=== PATIENT | female | born 1965 | race Caucasian/White ===

== ENCOUNTER 2020-01-16 11:07 | Emergency (ER) | payer OTHER ==
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
--- OUTSIDE RECORDS SUMMARY | 2020-01-16 11:10 | XMS REPORT | Continuity of Care Document ---
:1965 Author Organization [facility] t Address [address] [place] [address] Care Team Providers Name Role Phone MD Jonathan WHATLEY Primary Care Physician Eder SEGOVIA Attending Clinician Advance Directives Directive Decision Effective Date Termination Date Comments Sour ce Yes N/A [facility] Problems Condition Condition Condition Status Onset Resolution Last Treating Co mments Source Name Details Category Date Date Treatment Clinician Date Fall Problem [facility] Laceration Problem DAPHNE TU of S [facility] per[facility] Elevated Problem CHRISTU liver S [facility] function [facility] tests [facility] Moderate Problem [facility]RISTU malnutriti S [facility] Severe Problem CHRISTU bipolar II S [facility] disorder, [facility] depressed, Hospit a with l anxious distress Alcohol Problem [facility]STU dependence [facility] Alcohol Problem [facility]RISTU withdrawal S [facility] syndrome [facility] Noncomplia Problem DAPHNE TU nce [facility] Complicate Problem DAPHNE TU d [facility] bereavemen [facility] Generalize Problem DAPHNE TU d anxiety S [facility] disorder [facility] Asymptomat Problem DAPHNE TU ic S [facility] bacteriuri [facility] a [facility] Hypertensi Problem DAPHNE TU on [facility] Leukopenia Problem DAPHNE TU [facility] Suicidal Problem [facility]U ideation [facility] Alcohol Problem CHRISTU abuse S [facility] Depression Problem DAPHNE TU S [facility] Alcoholic Problem NIR U intoxicati S . [facility] Recurrent Problem NIR U vomiting S [facility] Allergies, Adverse Reactions, Alerts Allergy Allergy Status Severity Reaction(s) Onset Inactive Treating Comm ents Source Name Type Date Date Clinician NO Allergy Active 2017-05 CHRISTU KNOWN to 06-07 S [facility] DRUG substanc 00:00: [facility] ALLERGY e 00 [facility] Social History Social Habit Start Date Stop Date Quantity Comments Source Sex Assigned At 1965 [address] 00:[facility]00 00:00[facility]00 [facility] Smoking Status Start Date Stop Date Source Smokes tobacco daily 2019-03-31 11:41:00 CHRISTU S [facility] (finding) Hospital Medications Ordered Filled Start Stop Current Ordering Indication Dosage Frequency Signature Comments Components Source Medication Medication Date Date Medication? Clinician (SIG) Name Name Hydroxyzine 2018-05 No 50mg NIR U Pamoate 1-[address] 14:23: [facility] Promethazin 2018-05 No 25mg NIR U e Hcl 1-[address] 14:23: [facility] Aripiprazol 2017-05 No 10mg NIR U e 2-[address] 11:31: [facility] Buspirone 2017-05 No 15mg CHRISTU Hcl 2-[address] 11:31: [facility] Fluoxetine 2017-05 No 20mg CHRISTU Hcl 2-[address] 11:31: [facility] Hydroxyzine 2017-05 No 25mg NIR U Pamoate 2-[address] 11:31: [facility] Mirtazapine 2017-05 No 15mg NIR U 2-[address] 11:31: [facility] Nicotine 2017-05 No 1 CHRISTU 2-[address] 11:31: [facility] Oxcarbazepi 2017-05 No 300mg DAPHNE TU ne 2-[address] 11:31: [facility] Trazodone 2018-1 No 150mg CHRISTU Hcl 2-[address] 11:31: [facility] 00 [facility] Clonidine No .1mg CHRISTU S [facility] Vital Signs Vital Name Observation Time Observation Value Comments Source Body Temperature 2019-03-31 14:32:00 98.0 [degF[facility] Heart Rate 2019-03-31 14:32:00 76 /min [facility] Respiratory rate 2019-03-31 14:32:00 20 /min CH[facility] BP Systolic 2019-03-31 14:32:00 134 mm[Hg] [facility] BP Diastolic 2019-03-31 14:32:00 74 mm[Hg] [facility] Heart Rate 2019-03-31 11:54:00 98 /min [facility] BP Systolic 2019-03-31 11:54:00 126 mm[Hg] [facility] BP Diastolic 2019-03-31 11:54:00 85 mm[Hg] [facility] Respiratory rate 2019-03-31 10:58:00 20 /min [facility] Weight 2019-03-31 10:58:00 140 [lb_av] [facility] BMI (Body Mass Index) 2019-03-31 10:58:00 27.3 kg/m2 [facility] Procedures Procedure Date / Time Performed Performing Clinician [facility] e ECG 2019-03-31 00:00:00 [facility] (electrocardiogram) [facility] Acute abdomen x-ray 2019-03-31 00:00:00 [facility] series with x-ray of Hospital chest, single view Plan of Care Planned Activity Planned Date Details Comments Source Future Scheduled Test Bacterial urine [facility] culture [code = [facility] 630-4] Goal Patient referral [facility] [code = 1923153 ] [facility] Instructions Anxiety, Adult (DC) [facility] Instructions Nausea and Vomiting, [facility] Adult (DC) Hospital Encounters Start End Encounter Admission Attending Care Care Encounter Source Date/Time Date/Time Type Type Clinicians Facility Department ID 2020-01-08 2020-01-08 Emergency Eder, RUST [id number] 20:39:00 21:34:00 [place] Snow [id number] Nataly [id number] [place] [id number] 2019-03-31 2019-03-31 Departed VAIBHAV REBOLLAR [id number] CHRISTU 10:56:00 14:30:00 Emergency [place] [address] [address] [facility] Results Test Description Test Time Test Comments Results Result Comments Source Urine color determination 2019-03-31 13:22:00 Test Item Value Reference Range Interpretation Comme nts Urine Color (test code = 5778-6) Yellow [facility] appearance [id number] 13:22:00 Test Item Value Reference Range Interpretation Comments Urine Appearance (test code = 5767-9) Cloudy [facility] pH measurement by test [id number] 13:22:00 Test Item Value Reference Range Interpretation Comments Urine pH (test code = 5803-2) 6.0 [facility]pH[facility] Test [id number] 13:22:00 Test Item Value Reference Range Interpretation Comments Urine Specific Murphy (test code = 1.025 5811-5) [facility] by Refractometry 2019-03-31 13:22:00 Test Item Value Reference Range Interpretation Comments Urine Specific Murphy (Refractom) 1.020 (test code = 5810-7) [facility] protein assay by test strip, [id number] 13:22:00 Test Item Value Reference Range Interpretation Comments Urine Protein (test code = Negative mg/dL 54767-5) [facility] glucose measurement by test strip (mass/volume)2019-03-31 13:22:00 Test Item Value Reference Range Interpretation Comments Urine Glucose (UA) (test code Negative mg/dL = 5792-7) [facility] ketones detection by test [id number] 13:22:00 Test Item Value Reference Range Interpretation Comments Urine Ketones (test code = Negative mg/dL 2514-8) [facility] erythrocytes count by test strip (number/volume)2019-03-31 13:22:00 Test Item Value Reference Range Interpretation Comments Urine Occult Blood (test code = Negative 24314-0) [facility] nitrite detection by automated test strip 2019-03-31 13:22:00 Test Item Value Reference Range Interpretation Comments Urine Nitrite (test code = 85515-2) Negative [facility] total bilirubin detection by test strip 2019-03-31 13:22:00 Test Item Value Reference Range Interpretation Comments Urine Bilirubin (test code = 5770-3) Negative [facility] urobilinogen measurement by automated test strip (mass/volume)2019-03-31 13:22:00 Test Item Value Reference Range Interpretation Comments Urine Urobilinogen (test code = Normal mg/dL 94699-8) [facility] leukocyte esterase detection by dipstick 2019-03-31 13:22:00 Test Item Value Reference Range Interpretation Comments Urine Leukocyte Esterase Negative {Barrera}/uL (test code = 5799-2) [facility] microscopic examination for dysmorphic red blood [id number] 13:22:00 Test Item Value Reference Range Interpretation Comments Urine RBC (test code = 76522-3) None /[HPF] [facility] count in urine sediment by microscopy high power field (number/[id number] 13:22:00 Test Item Value Reference Range Interpretation Comments Urine WBC (test code = 5821-4) 5-10 /[HPF] [facility] sediment squamous epithelial cell count by microscopy (number/high power field)2019-03-31 13:22:00 Test Item Value Reference Range Interpretation Comments Urine Squamous Epithelial 2+ Moderate /[LPF] Cells (test code = 82344-8) [facility] sediment by light [id number] 13:22:00 Test Item Value Reference Range Interpretation Comments Urine Bacteria (test code 2+ Moderate /[HPF] = 68140-8) [facility] [id number] 13:22:00 Test Item Value Reference Range Interpretation Comments Urine Culture Indicated Yes, Criteria Met (test code = 8264-4) [facility]3][facility] leukocyte count (number/volume) 2019-03-31 11:15:00 Test Item Value Reference Range Interpretation Comments White Blood Count (test code = 5.1 10*3/uL 6690-2) [facility] automated count (number/volume) 2019-03-31 11:15:00 Test Item Value Reference Range Interpretation Comments Red Blood Count (test code = 4.58 10*6/uL 789-8) [facility] measurement (mass/volume) 2019-03-31 11:15:00 Test Item Value Reference Range Interpretation Comments Hemoglobin (test code = 718-7) 13.9 g/dL [facility] hematocrit (volume fraction) 2019-03-31 11:15:00 Test Item Value Reference Range Interpretation Comments Hematocrit (test code = 4544-3) 41.9 % [facility]3][facility] erythrocyte mean corpuscular volume (MCV) [id number] 11:15:00 Test Item Value Reference Range Interpretation Comments Mean Corpuscular Volume (test code = 91.5 fL 787-2) [facility]3][facility] eryth[facility] mean corpuscular hemoglobin (mass per erythrocyte)2019-03-31 11:15:00 Test Item Value Reference Range Interpretation Comments Mean Corpuscular Hemoglobin (test 30.3 pg code = 785-6) [facility]3][facility] eryth[facility] mean corpuscular hemoglobin concentration (MCHC) measurement ([id number] 11:15:00 Test Item Value Reference Range Interpretation Comments Mean Corpuscular Hemoglobin Concent 33.2 % (test code = 786-4) [facility]3][facility] eryth[facility] distribution width ratio 2019-03-31 11:15:00 Test Item Value Reference Range Interpretation Comments Red Cell Distribution Width (test code 12.9 % = 788-0) [facility] platelet count (count/volume) 2019-03-31 11:15:00 Test Item Value Reference Range Interpretation Comments Platelet Count (test code = 237 10*3/uL 777-3) [facility] platelet mean volume measurement 2019-03-31 11:15:00 Test Item Value Reference Range Interpretation Comments Mean Platelet Volume (test code = 10.5 fL 68115-3) [facility] count as percentage of total [id number] 11:15:00 Test Item Value Reference Range Interpretation Comments Neutrophils (%) (Auto) (test code = 71.5 % 770-8) [facility] immature granulocyte count as percentage of total [id number] 11:15:00 Test Item Value Reference Range Interpretation Comments Immature Granulocyte % (Auto) (test 0.40 % code = 37730-3) [facility] lymphocyte count as percentage of total [id number] 11:15:00 Test Item Value Reference Range Interpretation Comments Lymphocytes (%) (Auto) (test code = 22.0 % 736-9) [facility] monocyte count as percentage of total bxqycdnkvr4470-04-28 11:15:00 Test Item Value Reference Range Interpretation Comments Monocytes (%) (Auto) (test code = 5.3 % 5905-5) [facility] eosinophil count as percentage of total bgyltcizpa8346-80-15 11:15:00 Test Item Value Reference Range Interpretation Comments Eosinophils (%) (Auto) (test code = 0.4 % 713-8) [facility] basophil count as percentage of total [id number] 11:15:00 Test Item Value Reference Range Interpretation Comments Basophils (%) (Auto) (test code = 0.4 % 706-2) [facility] nucleated erythrocyte count as percentage of total [id number] 11:15:00 Test Item Value Reference Range Interpretation Comments Nucleated Red Blood Cells % (test code 0.0 % = 36180-2) [facility] neutrophil count (number/volume) 2019-03-31 11:15:00 Test Item Value Reference Range Interpretation Comments Neutrophils # (Auto) (test code = 3.7 10*3/uL 751-8) [facility] immature granulocyte count as percentage of total nzgptnaqek2511-64-57 11:15:00 Test Item Value Reference Range Interpretation Comments Immature Granulocyte # (Auto) (test 0.0200 code = 97930-0) [facility] lymphocyte count (number/volume) 2019-03-31 11:15:00 Test Item Value Reference Range Interpretation Comments Lymphocytes # (Auto) (test code = 1.1 10*3/uL 731-0) [facility] monocytes automated count (number/volume) 2019-03-31 11:15:00 Test Item Value Reference Range Interpretation Comments Monocytes # (Auto) (test code = 0.3 10*3/uL 742-7) [facility] eosinophil [id number] 11:15:00 Test Item Value Reference Range Interpretation Comments Eosinophils # (Auto) (test code = 0.0 10*3/uL 711-2) [facility] basophil count (number/volume) 2019-03-31 11:15:00 Test Item Value Reference Range Interpretation Comments Basophils # (Auto) (test code = 0.0 10*3/uL 704-7) [facility] leukocyte count corrected for nucleated [id number] 11:15:00 Test Item Value Reference Range Interpretation Comments Nucleated Red Blood Cells # (test code 0.000 = 74405-4) [facility] (moles/volume)2019-03-31 11:15:00 Test Item Value Reference Range Interpretation Comments Sodium Level (test code = 00553-4) 142 mmol/L [facility] or plasma potassium measurement (moles/volume)2019-03-31 11:15:00 Test Item Value Reference Range Interpretation Comments Potassium Level (test code = 3.3 mmol/L 2823-3) [facility] or plasma chloride measurement (moles/volume) 2019-03-31 11:15:00 Test Item Value Reference Range Interpretation Comments Chloride Level (test code = 106 mmol/L 2075-0) [facility] or plasma carbon dioxide measurement (moles/volume)2019-03-31 11:15:00 Test Item Value Reference Range Interpretation Comments Carbon Dioxide Level (test code = 30 mmol/L 2027-) [facility] plasma anion [id number] 11:15:00 Test Item Value Reference Range Interpretation Comments Anion Gap (test code = 57884-0) 6.0 mmol/L [facility] or plasma urea nitrogen measurement (mass/volume)2019-03-31 11:15:00 Test Item Value Reference Range Interpretation Comments Blood Urea Nitrogen (test code = 18.0 mg/dL 3094-0) [facility] or plasma creatinine measurement (mass/volume)2019-03-31 11:15:00 Test Item Value Reference Range Interpretation Comments Creatinine (test code = 2160-0) 0.871 mg/dL [facility] [id number] 11:15:00 Test Item Value Reference Range Interpretation Comments Estimat Glomerular Filtration Rate > 60 (test code = 18301-2) [facility] or plasma glucose measurement (mass/volume) 2019-03-31 11:15:00 Test Item Value Reference Range Interpretation Comments Glucose Level (test code = 2345-7) 117 mg/dL [facility] or plasma calcium measurement (mass/volume) 2019-03-31 11:15:00 Test Item Value Reference Range Interpretation Comments Calcium Level (test code = 17279-2) 9.8 mg/dL [facility] or plasma total bilirubin measurement (mass/volume)2019-03-31 11:15:00 Test Item Value Reference Range Interpretation Comments Total Bilirubin (test code = 0.4 mg/dL 1974-2) [facility] or plasma aspartate aminotransferase measurement (enzymatic activity/volume)2019-03-31 11:15:00 Test Item Value Reference Range Interpretation Comments Aspartate Amino Transf (AST/SGOT) 16 U/L (test code = 1920-8) [facility] or plasma alanine aminotransferase measurement (enzymatic activity/volume)2019-03-31 11:15:00 Test Item Value Reference Range Interpretation Comments Alanine Aminotransferase (ALT/SGPT) 18 U/L (test code = 1742-6) [facility] or plasma protein measurement (mass/volume) 2019-03-31 11:15:00 Test Item Value Reference Range Interpretation Comments Total Protein (test code = 2885-2) 7.7 g/dL [facility] or plasma albumin measurement (mass/volume) 2019-03-31 11:15:00 Test Item Value Reference Range Interpretation Comments Albumin (test code = 1751-7) 4.4 g/dL [facility] or plasma alkaline phosphatase measurement (enzymatic activity/volume)2019-03-31 11:15:00 Test Item Value Reference Range Interpretation Comments Alkaline Phosphatase (test code = 101 U/L 6768-6) [facility] or plasma lipase measurement (enzymatic activity/volume)2019-03-31 11:15:00 Test Item Value Reference Range Interpretation Comments Lipase (test code = 3040-3) 123 U/L [facility] ser/kfcc1228-15-96 11:15:00 Test Item Value Reference Range Interpretation Comments Lactic Acid Level (test code = 1.4 mmol/L 2524-7) [facility] or plasma thyrotropin measurement by detection limit <=0.005 miu/l (units/[id number] 11:15:00 Test Item Value Reference Range Interpretation Comments Thyroid Stimulating Hormone 0.444 u[iU]/mL (TSH) (test code = 21701-9) [facility]
--- NOTE | 2020-01-16 12:00 | EDPHYS ---
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 11:56 The patient presents to the emergency department requesting refill(s) for: Lisy, rn Lasix, Prozac. The patient chronically suffers from bipolar and anxiety. The patient has experienced similar episodes in the past. Reports displaced from [place] and unable to contact her doctor, states recently had meds refilled at [facility] for thorazine/klonopin, but only given 5 days. No acute complaints. . 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 - Social history:: Smoking status: Patient reports the use of cigarette tobacco products, smokes one-half pack cigarettes per day. - Family history:: not pertinent. - Hospitalizations: : No recent hospitalization is reported. ROS: 11:56 Constitutional: Negative for fever, chills, and weight loss, Eyes: Negative for injury, rn pain, redness, and discharge, Neck: Negative for injury, pain, and swelling, Cardiovascular: Negative for chest pain, palpitations, and edema, Respiratory: Negative for shortness of breath, cough, wheezing, and pleuritic chest pain, Abdomen/GI: Negative for abdominal pain, nausea, vomiting, diarrhea, and constipation, MS/Extremity: Negative for injury and deformity, Skin: Negative for injury, rash, and discoloration, Neuro: Negative for headache, weakness, numbness, tingling, and seizure, Psych: Negative for suicide ideation, homicidal ideation, and hallucinations. Exam: 11:56 Constitutional: This is a well developed, well nourished patient who is awake, alert, rn and in no acute distress. Respiratory: No increased work of breathing, no retractions or nasal flaring. Neuro: Awake and alert, GCS 15, Normal gait. Vital Signs: 11:41 BP 131 / 97; Pulse 102; Resp 16 S; Temp 97.3(TE); Pulse Ox 100% on R/A; Weight 63.5 kg ca1 (R); Height 5 ft. 0 in. (152.40 cm) (R); Pain 0/10; 11:41 Body Mass Index 27.34 (63.50 kg, 152.40 cm) ca1 MDM: 11:50 Patient medically screened. rn 11:56 Data reviewed: vital signs, nurses notes, and as a result, I will discharge patient. rn Counseling: I had a detailed discussion with the patient and/or guardian regarding: the historical points, exam findings, and any diagnostic results supporting the discharge/admit diagnosis, the need for outpatient follow up, to return to the emergency department if symptoms worsen or persist or if there are any questions or concerns that arise at home. Special discussion: I discussed with the patient/guardian in detail that at this point there is no indication for admission to the hospital. It is understood, however, that if the symptoms persist or worsen the patient needs to return immediately for re-evaluation. Based on the history and exam findings, there is no indication for further emergent testing or inpatient evaluation. I discussed with the patient/guardian the need to see the psychiatrist for further evaluation of the symptoms. Administered Medications: No medications were administered Disposition: 01/16/20 11:59 Discharged to Home. Impression: Anxiety disorder, unspecified, Encounter for medicaiton refill. - Condition is Stable. - Discharge Instructions: Generalized Anxiety Disorder. - Prescriptions for chlorpromazine 100 mg Oral tablet - take 1 tablet by ORAL route 2 times per day; 28 tablet. trazodone 50 mg Oral tablet - take 1 tablet by ORAL route once daily; 14 tablet. Abilify 15 mg Oral Tablet - take 1 tablet by ORAL route once daily; 14 tablet. Prozac 20 mg Oral Capsule - take 1 capsule by ORAL route once daily; 14 capsule. Lasix 40 mg Oral Tablet - take 1 tablet by ORAL route once daily for 14 days; 14 tablet. - Medication Reconciliation Form, Thank You Letter, Antibiotic Education, Prescription Opioid Use form. - Follow up: Private Physician; When: As needed; Reason: Recheck today's complaints, Re-evaluation by your physician. - Problem is chronic. - Symptoms are unchanged. Signatures: Cathi Rosen, RN RN iw Emigdio Puri MD MD rn Acob, Pricilla, RN RN ca1 Michelle Julien RN RN jr10 Corrections: (The following items were deleted from the chart) 12:10 11:59 01/16/2020 11:59 Discharged to Home. Impression: Anxiety disorder, unspecified; jr10 Encounter for medicaiton refill. Condition is Stable. Forms are Medication Reconciliation Form, Thank You Letter, Antibiotic Education, Prescription Opioid Use. Follow up: Private Physician; When: As needed; Reason: Recheck today's complaints, Re-evaluation by your physician. Problem is chronic. Symptoms are unchanged. rn 12:24 12:10 01/16/2020 11:59 Discharged to Home. Impression: Anxiety disorder, unspecified; iw Encounter for medicaiton refill. Condition is Stable. Discharge Instructions: Generalized Anxiety Disorder. Prescriptions for chlorpromazine 100 mg Oral tablet - take 1 tablet by ORAL route 2 times per day; 28 tablet, trazodone 50 mg Oral tablet - take 1 tablet by ORAL route once daily; 14 tablet, Abilify 15 mg Oral Tablet - take 1 tablet by ORAL route once daily; 14 tablet, Prozac 20 mg Oral Capsule - take 1 capsule by ORAL route once daily; 14 capsule, Lasix 40 mg Oral Tablet - take 1 tablet by ORAL route once daily for 30 days; 14 tablet. and Forms are Medication Reconciliation Form, Thank You Letter, Antibiotic Education, Prescription Opioid Use. Follow up: Private Physician; When: As needed; Reason: Recheck today's complaints, Re-evaluation by your physician. Problem is chronic. Symptoms are unchanged. jr10
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
[2020-01-16 12:16] VITALS: BP 131/97; TEMP 97.3; O2SAT 100
== END 2020-01-16 12:24 | disposition home or self-care (01) ==
LOC: ER 11:07
DX: Z76.0 Encounter for issue of repeat prescription (principal); F41.9 Anxiety disorder, unspecified; F31.9 Bipolar disorder, unspecified; F17.210 Nicotine dependence, cigarettes, uncomplicated; Z88.8 Allergy status to other drugs, medicaments and biological substances
CPT/HCPCS: 99281